=== PATIENT | female | born 1990 | race Caucasian/White ===

== ENCOUNTER 2024-11-19 12:42 | Emergency (ER) | payer OTHER, SELFPAY ==
[2024-11-19 12:43] VITALS: BP 100/63; PULSE 95; RESP 16; TEMP 37; O2SAT 99; BMI 21.8
--- NOTE | 2024-11-19 13:03 | CT_ITS ---
EXAM: CT Head Without Intravenous Contrast CLINICAL INDICATION: HEADACHE TECHNIQUE: Axial computed tomography images of the head/brain without intravenous contrast. This CT exam was performed using one or more of the following dose reduction techniques: automated exposure control, adjustment of the mA and/or kV according to patient size, and/or use of iterative reconstruction technique. COMPARISON: No relevant prior studies available. FINDINGS: BRAIN AND EXTRA-AXIAL SPACES: No acute intracranial hemorrhage, midline shift or mass effect. If symptoms persist, further evaluation with MRI is recommended. No significant white matter disease. BONES/JOINTS: Unremarkable. No acute fracture. SOFT TISSUES: Unremarkable. SINUSES: Unremarkable as visualized. No acute sinusitis. MASTOID AIR CELLS: Unremarkable as visualized. No mastoid effusion. CT/Brain/Head without Contrast IMPRESSION: No acute intracranial hemorrhage, midline shift or mass effect. If symptoms per sist, further evaluation with MRI is recommended. Reading Location: [id number]
--- NOTE | 2024-11-19 13:03 | CT_ITS ---
EXAM: CT Abdomen and Pelvis Without Intravenous Contrast CLINICAL INDICATION: R FLANK PAIN TECHNIQUE: Axial computed tomography images of the abdomen and pelvis without intravenous contrast. This CT exam was performed using one or more of the following dose reduction techniques: automated exposure control, adjustment of the mA and/or kV according to patient size, and/or use of iterative reconstruction technique. COMPARISON: No relevant prior studies available. FINDINGS: LUNG BASES: Unremarkable. No mass. No consolidation. ABDOMEN: LIVER: Hepatomegaly with fatty infiltration. GALLBLADDER AND BILE DUCTS: Gallbladder is surgically absent. No ductal dilation. PANCREAS: Unremarkable. No ductal dilation. SPLEEN: Unremarkable. No splenomegaly. ADRENALS: Unremarkable. No mass. KIDNEYS AND URETERS: Mild right hydroureteronephrosis without obstructing calculus. STOMACH AND BOWEL: Unremarkable. No obstruction. No mucosal thickening. PELVIS: APPENDIX: Normal appendix. BLADDER: Unremarkable. No stones. REPRODUCTIVE: Unremarkable as visualized. ABDOMEN and PELVIS: INTRAPERITONEAL SPACE: Unremarkable. No free air. No significant fluid collection. BONES/JOINTS: No acute fracture. No dislocation. SOFT TISSUES: Unremarkable. VASCULATURE: Unremarkable. No abdominal aortic aneurysm. LYMPH NODES: Unremarkable. No enlarged lymph nodes. CT/Abdomen/Pelvis without Cont IMPRESSION: 1. Normal appendix. 2. Mild right hydroureteronephrosis without obstructing calculus. 3. Hepatomegaly with fatty infiltration. Reading Location: [id number]
[2024-11-19] MEDS: Metoclopramide 10 MG/2 ML Vial 5 MG IV (13:17)
[2024-11-19] MEDS: DiphenhydrAMINE 50 MG/ML Syringe 25 MG IV (13:17)
[2024-11-19] MEDS: 0.9% Normal Saline (1000mL) 1,000 ML 999 ML IV ×2 (13:17→14:30)
[2024-11-19 13:24] LABS: Absolute Lymphocyte Count 0.84 X10^3/uL (0.83-4.51); Absolute Neutrophil Count 12.7 X10^3/uL (2.0-7.7); Basophil# 0.04 X10^3/uL; Basophil% 0.3 % (0-1); Eosinophil# 0.01 X10^3/uL; Eosinophils% 0.1 % (0-5); Hematocrit 35.3 % (37-47); Hemoglobin 12.1 g/dL (12.0-15.0); Lymphocyte # 0.84 X10^3/ul (0.83-4.51); Lymphocyte % 5.6 % (19-41); Mean Corp Hgb Conc 34.3 g/dL (32-36); Mean Corpuscular Hgb 29.6 pg (27.0-32.0); Mean Corpuscular Volume 86.3 fL (81-99); Mean Platelet Vol. 10.3 fl (6.2-12.0); Monocyte# 1.43 X10^3/uL; Monocyte% 9.5 % (0-10); NRBC Flagged by Analyzer 0 % (0-5); Neutrophil # 12.71 X10^3/uL (2.7-7.7); Platelet Count 183 K/mm3 (150-450); RBC Distribution Width CV 13.1 % (11.6-14.6); RBC Distribution Width SD 40.9 fl (35.1-43.9); Red Blood Count 4.09 M/mm3 (4.2-5.4); White Blood Count 15.1 K/mm3 (4.4-11.0)
--- NOTE | 2024-11-19 13:28 | EDS_ITS ---
HPI <YAQUELIN Olson - Last Filed: 11/19/24 17:02> History of Present Illness Chief Complaint: General Illness Narrative Narrative: Patient is in today due to concerns for fevers, urinary symptoms, right low back pain, and a headache. She reports that on Thursday she developed dysuria and suprapubic pain. She is currently in town from [place], her sister had a doctor come to the house to evaluate her and they performed a urinalysis that came back positive for UTI, she was placed on Cipro yesterday which she has had 2 doses of. She reports that over the last several days she has had mild right low back pain. She does have a history of kidney stones. She also reports a migraine that started yesterday, she reports that she has had migraines in the past, however, this one is more severe than usual. She has had intermittent fevers over the last 2 days that are controlled with Tylenol and ibuprofen. She went to urgent care this morning and they recommended she come in to be seen. She denies any neck pain or neck stiffness, abdominal pain, nausea, vomiting, and stool changes. PFSH <YAQUELIN Olson - Last Filed: 11/19/24 17:02> PFSH Medical History Hysterectomy planned Allergy/AdvReac Type Severity Reaction Status Date / Time cefprozil (From Cefzil) Allergy Intermediate Hives Verified 11/19/24 12:43 Surgical History (Updated 11/19/24 @ 13:14 by Jenn Pacheco) Bariatric surgery status Social History Smoking Status: Current every day smoker tobacco type: e-cigarettes ROS <YAQUELIN Olson - Last Filed: 11/19/24 17:02> ROS ED Constitutional Constitutional ED: Reports chills and fever(s) Eyes Eyes: Denies change in vision Cardiovascular Cardiovascular: Denies chest pain Respiratory/Chest Respiratory/Chest: Denies cough or dyspnea Gastrointestinal Gastrointestinal: Denies abdominal pain, constipation, diarrhea, nausea or vomiting Genitourinary Genitourinary ED: Reports dysuria and urinary frequency; Denies hematuria Musculoskeletal Musculoskeletal: Reports back pain; Denies neck pain Integumentary Denies rash Neurologic Neurologic: Reports headache(s) EXAM <YAQUELIN Olson - Last Filed: 11/19/24 17:02> Physical Exam Const Vital Signs: 11/19/24 12:43 11/19/24 13:46 11/19/24 14:00 Temperature 98.6 F 98.1 F 98.1 F Temperature Source Oral Oral Oral Pulse Rate 95 73 75 Respiratory Rate 16 18 16 Blood Pressure 100/63 101/67 104/65 Blood Pressure Mean 75 78 78 Pulse Ox 99 100 100 Oxygen Delivery Method Room Air Room Air Room Air 11/19/24 14:12 11/19/24 15:00 11/19/24 15:41 Temperature 98.2 F 98.2 F 98.2 F Temperature Source Oral Oral Pulse Rate 74 69 71 Respiratory Rate 12 16 16 Blood Pressure 95/54 L 110/64 106/68 Blood Pressure Mean 67 79 80 Pulse Ox 100 100 100 Oxygen Delivery Method Room Air Room Air Positive well nourished, well developed and no apparent distress General Appearance ED: well developed HEENT Reports normocephalic and head/scalp atraumatic Mouth ED: Yes moist mucous membranes normal Eyes PERRL and EOMs intact bilaterally Neck full ROM and supple Neck Narrative: No meningeal signs, negative Brezinski and Kernig sign. Chest Wall inspection of chest normal Resp normal respiratory effort and clear to auscultation bilaterally Cardio regular rate and regular rhythm GI soft to palpation, non-tender, non-distended and no masses Back/Spine no CVA tenderness, normal ROM and normal to inspection Extremity normal to inspection and full ROM Neuro oriented x3, CN's II-XII intact bilaterally, moves all extremities, no focal motor deficits and no sensory deficits noted Sensorium / Orientation: awake and alert Motor Exam: strength 5/5 throughout Psych mental status grossly normal and thought process normal Skin no rashes or lesions noted and no wounds <John Benito MD - Last Filed: 11/23/24 09:04> Physical Exam Const Vital Signs: 11/19/24 12:43 11/19/24 13:46 11/19/24 14:00 Temperature 98.6 F 98.1 F 98.1 F Temperature Source Oral Oral Oral Pulse Rate 95 73 75 Respiratory Rate 16 18 16 Blood Pressure 100/63 101/67 104/65 Blood Pressure Mean 75 78 78 Pulse Ox 99 100 100 Oxygen Delivery Method Room Air Room Air Room Air 11/19/24 14:12 11/19/24 15:00 11/19/24 15:41 Temperature 98.2 F 98.2 F 98.2 F Temperature Source Oral Oral Pulse Rate 74 69 71 Respiratory Rate 12 16 16 Blood Pressure 95/54 L 110/64 106/68 Blood Pressure Mean 67 79 80 Pulse Ox 100 100 100 Oxygen Delivery Method Room Air Room Air [facility] <YAQUELIN Olson - Last Filed: 11/19/24 17:02> [facility] Narrative Medical decision making narrative: Patient presenting today due to concerns for fevers, urinary symptoms, mild right low back pain, and a headache. The headache started yesterday, she has had the urinary symptoms since Thursday. She started Cipro yesterday and has had 2 doses so far. She is currently afebrile here, nontoxic-appearing, and in no acute distress. No CVA tenderness on exam. She does have a history of kidney stones, given her right low back pain, CT of abdomen and pelvis will be obtained to assess for kidney stone and other abnormality. She reports a severe headache that started yesterday, she has had migraines in the past but reports that this headache feels worse. She has no meningeal signs on exam. Head CT will be obtained to assess for intracranial abnormality. She was medicated here with IV fluids, Reglan, and Benadryl. WBC is 15.1, BMP, urine hCG are unremarkable. UA does show 100 leukocytes with 25-50 WBCs, rare bacteria, and 5-10 squamous cells. Her lactic acid is normal. Urine will be cultured. She is currently taking Cipro, she will continue this. Head CT negative for intracranial abnormality, abdomen/pelvis CT shows mild right hydroureteronephrosis without an obstructing calculus. Her pain is located on the right side of her back, she does have a history of kidney stones, suspect she may have passed a stone. We do not currently have urology at this time. Given she is not septic and is doing well on reexamination, I do not feel that she needs emergent transfer for this. She has been afebrile here and is requesting to go home. She is currently visiting her family from out of town but I did recommend that she follow-up with her PCP and a urologist back home. Strict return instructions were discussed with her and patient discharged home in stable condition. Lab Data Attestation: I reviewed the patient's lab results. Labs: Laboratory Results - last 24 hr 11/19/24 11/19/24 11/19/24 13:15 13:35 14:35 WBC 15.1 H RBC 4.09 L Hgb 12.1 Hct 35.3 L MCV 86.3 MCH 29.6 MCHC 34.3 RDW Std Deviation 40.9 RDW Coeff of Curtis 13.1 Plt Count 183 MPV 10.3 Immature Gran % (Auto) 0.500 Neut % (Auto) 84.0 H Lymph % (Auto) 5.6 L Iron % (Auto) 9.5 Eos % (Auto) 0.1 Baso % (Auto) 0.3 Absolute Neuts (auto) 12.7 H Absolute Lymphs (auto) 0.84 Nucleated RBC % 0 Sodium 135 Potassium 3.6 Chloride 100 Carbon Dioxide 24.8 Anion Gap 11 BUN 13 Creatinine 0.82 Estim Creat Clear Calc 87.81 Est GFR (MDRD) Non-Af 96 BUN/Creatinine Ratio 16.0 Glucose 110 H Lactic Acid 1.0 Calcium 9.4 Serum , Qual NEGATIVE Urine Color Yellow Urine Clarity Sl. Cloudy Urine pH 5.0 Ur Specific [place] 1.025 Urine Protein 100 H Urine Glucose (UA) Normal Urine Ketones 5 H Urine Occult Blood 10 H Urine Nitrite Negative Urine Bilirubin 1 H Urine Urobilinogen Normal Ur Leukocyte Esterase 100 H Urine RBC 0-5 SEEN Urine WBC 25-50 SEEN Ur Squamous Epith Cells 5-10 SEEN Ur Renal Epithelial Cell 0-5 SEEN Urine Bacteria RARE Urine Mucus 1+ Radiography Diagnostic Testing: Clinical Impression(s) from Imaging Studies Abdomen/Pelvis CT 11/19/24 13:03 IMPRESSION: 1. Normal appendix. 2. Mild right hydroureteronephrosis without obstructing calculus. 3. Hepatomegaly with fatty infiltration. Reading Location: [facility] Brain CT 11/19/24 13:03 IMPRESSION: No acute intracranial hemorrhage, midline shift or mass effect. If symptoms persist, further evaluation with MRI is recommended. Reading Location: [facility] <John Benito MD - Last Filed: 11/23/24 09:04> [facility] History & Record Review Discussion w/independent historian: Patient Lab Data Labs: Laboratory Results - last 24 hr 11/19/24 11/19/24 11/19/24 13:15 13:35 14:35 WBC 15.1 H RBC 4.09 L Hgb 12.1 Hct 35.3 L MCV 86.3 MCH 29.6 MCHC 34.3 RDW Std Deviation 40.9 RDW Coeff of Curtis 13.1 Plt Count 183 MPV 10.3 Immature Gran % (Auto) 0.500 Neut % (Auto) 84.0 H Lymph % (Auto) 5.6 L Iron % (Auto) 9.5 Eos % (Auto) 0.1 Baso % (Auto) 0.3 Absolute Neuts (auto) 12.7 H Absolute Lymphs (auto) 0.84 Nucleated RBC % 0 Sodium 135 Potassium 3.6 Chloride 100 Carbon Dioxide 24.8 Anion Gap 11 BUN 13 Creatinine 0.82 Estim Creat Clear Calc 87.81 Est GFR (MDRD) Non-Af 96 BUN/Creatinine Ratio 16.0 Glucose 110 H Lactic Acid 1.0 Calcium 9.4 Serum , Qual NEGATIVE Urine Color Yellow Urine Clarity Sl. Cloudy Urine pH 5.0 Ur Specific [place] 1.025 Urine Protein 100 H Urine Glucose (UA) Normal Urine Ketones 5 H Urine Occult Blood 10 H Urine Nitrite Negative Urine Bilirubin 1 H Urine Urobilinogen Normal Ur Leukocyte Esterase 100 H Urine RBC 0-5 SEEN Urine WBC 25-50 SEEN Ur Squamous Epith Cells 5-10 SEEN Ur Renal Epithelial Cell 0-5 SEEN Urine Bacteria RARE Urine Mucus 1+ Radiography Diagnostic Testing: Clinical Impression(s) from Imaging Studies Abdomen/Pelvis CT 11/19/24 13:03 IMPRESSION: 1. Normal appendix. 2. Mild right hydroureteronephrosis without obstructing calculus. 3. Hepatomegaly with fatty infiltration. Reading Location: [facility] Brain CT 11/19/24 13:03 IMPRESSION: No acute intracranial hemorrhage, midline shift or mass effect. If symptoms persist, further evaluation with MRI is recommended. Reading Location: [facility] Treatment and Re-Evaluation :: Dr. Benito: I have personally performed a face to face assessment of the patient and have reviewed the KETTY Note. I performed a substantive portion of the visit including all aspects of the following. My falcon findings include: History is right low back pain/flank pain as well as headache. Exam is afebrile. Vital signs noted. Nontoxic-appearing. Cardiovascular examination regular rate and rhythm, lungs clear to auscultation bilaterally. Abdomen is soft, nontender, with normoactive bowel sounds, no guarding or rebound. Neurological examination nonfocal, nonlateralizing. Medical Decision Making: Check labs. Check CTs. I reviewed the radiology reports his CT of the brain and CT of the flank. She does have hydronephrosis without evidence of obstructing stone. Repeat examination by GEREMIAS, patient request discharge. Follow-up as outpatient. Discharge. Other additions or changes: [None] Discharge Plan Triage Chief Complaint: General Illness ED Midlevel Provider: Thelma Arnold ED Provider: John Benito Dx/Rx/DC Orders Clinical Impression: Migraine, Hydroureteronephrosis, UTI (urinary tract infection) Instructions: UTIs, ED, Migraine (Classical) Primary Care Provider: [facility] Doctor,Out of Referrals: NOT,DEFINED [Non-Staff] - Activity Restrictions/Additional Instructions: Stay well-hydrated, return for any worsening symptoms or if you have any other concerns. Please follow-up with your PCP in the next 5 to 7 days. Print Language: Uruguayan Disposition Disposition: Home, Self Care Discharge Date/Time: 11/19/24 15:42
[2024-11-19 13:35] LABS: Internal QC Validated? YES +Cl - CLEAR BKGD; Pregnancy, Serum, hCG Quali. NEGATIVE Negative
[2024-11-19 13:40] LABS: Anion Gap 11 (5-15); BUN 13 mg/dL (4-19); Calcium,Total 9.4 mg/dL (7.6-11.0); Carbon Dioxide 24.8 mmol/L (21.0-32.0); Chloride 100 mmol/L (98-108); Creatinine, Serum 0.82 mg/dL (0.70-1.20); EST Glomerular Filtration Rate 96 (>60); Estimated Creatinine Clearance 87.81 ml/min (50-250); Glucose 110 mg/dL (70-99); Potassium 3.6 mmol/L (3.3-5.1); Sodium Level 135 mmol/L (133-145)
[2024-11-19 13:46] VITALS: BP 101/67; PULSE 73; RESP 18; TEMP 36.7; O2SAT 100
[2024-11-19 13:52] LABS: Color, Urine Yellow (Yellow); Glucose, Dipstick Normal (Normal); Ketone-Dipstick 5 mg/dl (Negative); Leukocyte Esterase-Dipstick 100 /ul (Negative); Nitrite-Dipstick Negative (Negative); Occult Blood-Urine 10 /ul (Negative); Protein-Dipstick 100 mg/dl (Negative); Specific Gravity, Urine 1.025 (1.002-1.030); Urine Clarity Sl. Cloudy (Clear); Urine Urobilinogen Normal (Normal)
[2024-11-19 13:57] LABS: Urine Bilirubin Dipstick 1 mg/dL (Negative)
[2024-11-19 14:00] VITALS: BP 104/65; PULSE 75; RESP 16; TEMP 36.7; O2SAT 100
[2024-11-19 14:02] LABS: White Blood Cells 25-50 SEEN /hpf (0-5)
[2024-11-19 14:03] LABS: Red Blood Cells-Urine 0-5 SEEN /hpf (0-5); Squamous Epithelial Cells - UA 5-10 SEEN /hpf (5-10)
[2024-11-19 14:05] LABS: Bacteria RARE /hpf (None Seen); Mucous, Urine 1+ /hpf (<or=2+)
[2024-11-19 14:06] LABS: Renal Epithelial Cells 0-5 SEEN /hpf (0-5)
[2024-11-19 14:12] VITALS: BP 95/54; PULSE 74; RESP 12; TEMP 36.8; O2SAT 100
[2024-11-19] MEDS: Ketorolac 15 MG/ML Vial IV (14:40)
[2024-11-19 15:00] VITALS: BP 110/64; PULSE 69; RESP 16; TEMP 36.8; O2SAT 100
[2024-11-19 15:41] VITALS: BP 106/68; PULSE 71; RESP 16; TEMP 36.8; O2SAT 100
== END 2024-11-19 15:42 | disposition home or self-care (01) ==
PROVIDERS: Physician Assistant; Emergency Provider Emergency Medicine; Referring Provider Emergency Medicine; Visit Provider Emergency Medicine
DX: N13.6 Pyonephrosis (principal); G43.909 Migraine, unspecified, not intractable, without status migrainosus; F17.290 Nicotine dependence, other tobacco product, uncomplicated; Z87.442 Personal history of urinary calculi
CPT/HCPCS: 70450; 74176; 80048; 81001; 83605; 84703; 85025; 87086; 96361; 96374; 96375; 99283